=== PATIENT | male | born 1990 | race Caucasian/White ===

== ENCOUNTER 2017-12-05 10:13 | Emergency (ER) | payer MEDICAID ==
[~2017-12-05] VITALS: Ht 172.7 cm; Wt 65.0 kg
[~2017-12-05 10:13] MED LIST: DICY10CA59 PO; DICY10CA88 PO; NO HOME MEDS; ONDA4TAB9 PO
[2017-12-05] MEDS ORDERED: ketorolac trometh. 30mg/ml inj. IV ONE (10:25)
[2017-12-05] MEDS ORDERED: diphenhydrAMINE 50 mg/ml inj IV ONE (10:25)
[2017-12-05] MEDS ORDERED: ondansetron/PF 4mg/2ml inj IV ONE ×2 (10:25)
[2017-12-05] MEDS ORDERED: haloperidol lactate 5mg/ml inj IM ONE (10:25)
[2017-12-05] MEDS ORDERED: normal saline 1000ML IV soln IVB ONE ×2 (10:25)
[2017-12-05 10:47] LABS: PROTHROMBIN TIME 10.4 SECONDS (9.0-12.0)
[2017-12-05] MEDS ORDERED: metoclopramide 5 mg/ml inj IV ONE (10:50)
[2017-12-05 10:52] LABS: ALANINE AMINOTRANSFERASE 16 U/L (12-78); ALBUMIN/GLOBULIN RATIO 1.1 (1.1-1.5); ALKALINE PHOSPHATASE 100 IU/L (46-116); ANION GAP 9 (8-16); ASPARTATE AMINO TRANSFERASE 14 U/L (10-37); BILIRUBIN,TOTAL 0.3 MG/DL (0.1-1.0); BLOOD UREA NITROGEN 18 MG/DL (7-18); BUN/CREATININE RATIO 17.1 (5.4-32.0); CHLORIDE 101 MMOL/L (99-107); CREATININE 1.05 MG/DL (0.60-1.10); GLUCOSE 111 MG/DL (70-104); LIPASE 81 U/L (73-393); POTASSIUM 3.5 MMOL/L (3.5-5.1); SODIUM 142 MMOL/L (135-145); TOTAL CARBON DIOXIDE 32.4 MMOL/L (24-32); TOTAL PROTEIN 7.7 G/DL (6.4-8.2); eGFR 84 ML/MIN
[2017-12-05 11:02] LABS: ETHANOL < 0.010 GM/DL (0.0-0.010)
[2017-12-05 11:04] LABS: BASOPHILS % (AUTO) 0.4 % (0-1); EOSINOPHILS % (AUTO) 0.6 % (0-6); HEMATOCRIT 45.2 % (42.0-52.0); HEMOGLOBIN 15.4 g/dl (14.0-17.9); LYMPHOCYTES # (AUTO) 0.8 X10'3 (1.1-4.8); LYMPHOCYTES % (AUTO) 11.7 % (21-51); MEAN CORPUSCULAR HEMOGLOBIN 30.4 PG (27.0-31.0); MEAN CORPUSCULAR HGB CONC 33.9 % (33.0-36.5); MEAN CORPUSCULAR VOLUME 89.6 FL (78-98); MEAN PLATELET VOLUME 7.2 FL (7.4-10.4); MONOCYTES # (AUTO) 0.1 X10'3 (0-0.9); MONOCYTES % (AUTO) 2.2 % (2-12); NEUTROPHILS # (AUTO) 5.7 X10'3 (1.8-7.7); NEUTROPHILS % (AUTO) 85.1 % (42-75); PLATELET COUNT 429 X10'3 (140-440); RED BLOOD COUNT 5.05 X10'6 (4.70-6.10); RED CELL DISTRIBUTION WIDTH 13.2 % (11.5-14.5); WHITE BLOOD COUNT 6.7 X10'3 (4.5-11.0)
[2017-12-05 11:09] LABS: CLARITY,URINE CLOUDY (Clear); COLOR,URINE YELLOW (Yellow); GLUCOSE, URINE NEGATIVE (Neg); KETONES,URINE NEGATIVE (Neg); LEUKOCYTE ESTERASE ,URINE NEGATIVE (Neg); NITRITES, URINE NEGATIVE (Neg); OCCULT BLOOD,URINE NEGATIVE (Neg); PH,URINE 5.5 (4.8-8.0); PROTEIN,URINE TRACE mg/dl (Neg); UA COLLECTION TYPE URINAL; UROBILINOGEN,URINE 0.2 E.U/dL (0.2-1.0)
[2017-12-05 11:14] LABS: HYALINE CASTS 0-3 /LPF (NEGATIVE); MUCUS STRANDS MODERATE /LPF (Neg); SQUAMOUS EPITHELIAL CELL,UR FEW /LPF (FEW)
[2017-12-05 11:15] LABS: BACTERIA,URINE FEW /HPF (Neg); RBC,URINE 0-2 /HPF (0-2); WBC,URINE 0-4 /HPF (0-4)
[2017-12-05 11:16] LABS: AMORPHOUS URATES 2+
[2017-12-05 11:19] LABS: URINE AMPHETAMINE SCREEN NEGATIVE (Neg); URINE BARBITUATE SCREEN NEGATIVE (Neg); URINE BENZODIAZEPINES SCREEN NEGATIVE (Neg); URINE CANNABINOID SCREEN POSITIVE (Neg); URINE COCAINE SCREEN NEGATIVE (Neg); URINE METHADONE SCREEN NEGATIVE (Neg); URINE OPIATE SCREEN NEGATIVE (Neg); URINE PHENCYCLIDINE SCREEN NEGATIVE (Neg)
[2017-12-05] MEDS ORDERED: ONDA8TAB9 PO (11:29)
[2017-12-05 11:39] VITALS: BP 122/63
== END 2017-12-05 12:07 | disposition home or self-care (01) ==
LOC: ER 10:14
DX: R11.2 Nausea with vomiting, unspecified (principal); R10.9 Unspecified abdominal pain; F17.200 Nicotine dependence, unspecified, uncomplicated; F12.10 Cannabis abuse, uncomplicated; F15.10 Other stimulant abuse, uncomplicated
CPT/HCPCS: 36415; 80053; 80305; 80320; 81001; 83690; 85025; 85610; 96361; 96372; 96374; 96375; 99284; J1200; J1630; J1885; J2765; J7030

== ENCOUNTER 2018-03-31 11:15 | Emergency (ER) | payer MEDICAID ==
[~2018-03-31] VITALS: Ht 167.6 cm; Wt 72.7 kg
[~2018-03-31 11:15] MED LIST changes: +ONDA8TAB9 PO
[2018-03-31 11:19] VITALS: BP 117/82
[2018-03-31] MEDS ORDERED: TETanus/Pertussis (Acell)/Diphther VAC/PF (Tdap-Adult) 0.5ml syringe IM ONE (11:45)
[2018-03-31] MEDS ORDERED: LIDOcaine 1.5% w/epinephrine 1:200,000 5ml ampul IJ ONE (11:45)
[2018-03-31] MEDS ORDERED: SULF1TAB49 PO (12:17)
== END 2018-03-31 12:26 | disposition home or self-care (01) ==
LOC: ER 11:15
DX: L02.415 Cutaneous abscess of right lower limb (principal); F12.90 Cannabis use, unspecified, uncomplicated; F15.90 Other stimulant use, unspecified, uncomplicated; Z79.2 Long term (current) use of antibiotics; Z79.899 Other long term (current) drug therapy
CPT/HCPCS: 10060; 87070; 87186; 90471; 90715; 99284; A6449; J3490; A6266